=== PATIENT | female | born 1975 | race Caucasian/White ===

== ENCOUNTER 2017-04-09 20:15 | Emergency (ER) | payer BC ==
[~2017-04-09] VITALS: Ht 162.6 cm; Wt 65.5 kg
[~2017-04-09 20:15] MED LIST: BACTROBAN OINTM22 GM TP; PHENOBARBITAL64.8 MG PO
[2017-04-09 20:48] LABS: ADD MIUA? YES; BILIRUBIN NEGATIVE; BLOOD LARGE; COLOR YELLOW ((YELLOW)); GLUCOSE (STRIP) NEGATIVE; KETONES 5; LEUKOCYTES NEGATIVE; NITRITE NEGATIVE; PROTEIN (STRIP) 30; UROBILINOGEN 0.2 MG/DL (0.2-1.0)
[2017-04-09 20:56] LABS: BACTERIA RARE /HPF; EPITHELIAL CELLS RARE /HPF; MUCUS TRACE /LPF; RED BLOOD CELLS TNTC /HPF (0-5); UCUL ADDED? YES; WHITE BLOOD CELLS 0-5 /HPF (0-5)
[2017-04-09 21:12] LABS: HEMATOCRIT 37.7 % (36.0-46.0); MCH 28.6 PG (29.0-34.0); MCHC 33.7 G/DL (30.0-36.0); MCV 84.9 FL (83-99); PLATELET COUNT 156 K/uL (156-360); RBC DIS.WIDTH-CV 12.9 % (11.8-14.6); RBC DIS.WIDTH-SD 39.4 % (39-53); RED BLOOD COUNT 4.44 M/uL (3.80-5.20); WHITE BLOOD COUNT 8.4 K/uL (4.1-10.2)
[2017-04-09 21:22] LABS: CHLORIDE 105 mEq/L (99-109); POTASSIUM 3.9 mEq/L (3.7-5.4); SODIUM 139 mEq/L (136-147)
[2017-04-09 21:25] LABS: GLUCOSE 119 mg/dL (70-99)
[2017-04-09 21:26] LABS: ANION GAP 10 MEQ/L (2-14)
[2017-04-09 21:27] LABS: TOTAL BILIRUBIN 0.5 mg/dL (0.0-1.0)
[2017-04-09 21:28] LABS: ALKALINE PHOSPHATASE 104 IU/L (3-129); GFR ESTIMATE (CALCULATED) > 59 mL/min/
[2017-04-09 21:29] LABS: UREA NITROGEN (BUN) 19 mg/dL (9-23)
[2017-04-09 21:39] LABS: QUANTITATIVE HCG < 4.0 MIU/ML
[2017-04-10] MEDS ORDERED: NORCO 5/3251 TABLET PO (00:02)
[2017-04-10] MEDS ORDERED: ZOFRAN ODT4 MG PO (00:02)
[2017-04-10 00:33] VITALS: BP 123/80
== END 2017-04-10 00:33 | disposition home or self-care (01) ==
LOC: EME 20:15
DX: N20.0 Calculus of kidney (principal)
CPT/HCPCS: 74176; 80053; 81003; 84702; 85027; 87077; 87086; 99281; 99284

== ENCOUNTER 2017-06-01 05:26 | Emergency (ER) | payer BC ==
[~2017-06-01] VITALS: Ht 165.1 cm; Wt 66.5 kg
[~2017-06-01 05:26] MED LIST changes: +NORCO 5/3251 TABLET PO; +ZOFRAN ODT4 MG PO
[2017-06-01 05:28] VITALS: BP 135/80
[2017-06-01] MEDS ORDERED: BACTRIM,SEPT1 TABLET PO (07:34)
== END 2017-06-01 08:16 | disposition home or self-care (01) ==
LOC: EME 05:26
PROC: 0H9QXZZ Drainage of Finger Nail, External Approach (ICD-10-PCS; principal; 2017-06-01)
DX: Q84.6 Other congenital malformations of nails (principal); L03.011 Cellulitis of right finger
CPT/HCPCS: 99281; 99283